=== PATIENT | male | born 1990 | race Caucasian/White ===

== ENCOUNTER 2017-02-05 07:14 | Emergency (ER) | payer BC ==
[2017-02-05] MEDS ORDERED: LIDOCAINE VISCOUS 2% 15 ML CUP MUCOUS MEM ONE ×2 (07:36→07:52)
[2017-02-05] MEDS ORDERED: KETOROLAC 60 MG/2 ML VIAL IM STA (07:48)
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
[2017-02-05] MEDS ORDERED: MORPHINE SULFATE 10 MG/ML SYRINGE IM STA (10:06)
[2017-02-05 10:48] VITALS: BP 136/79; PULSE 79; RESP 20; TEMP 97
== END 2017-02-05 10:52 | disposition home or self-care (01) ==
LOC: EC 07:14
DX: S90.01XA Contusion of right ankle, initial encounter (principal); S40.212A Abrasion of left shoulder, initial encounter; S40.211A Abrasion of right shoulder, initial encounter; S50.311A Abrasion of right elbow, initial encounter; S60.511A Abrasion of right hand, initial encounter; S70.211A Abrasion, right hip, initial encounter; S70.311A Abrasion, right thigh, initial encounter; S90.511A Abrasion, right ankle, initial encounter; Z88.0 Allergy status to penicillin; Z88.1 Allergy status to other antibiotic agents; V86.09XA Driver of other special all-terrain or other off-road motor vehicle injured in traffic accident, initial encounter; Y92.410 Unspecified street and highway as the place of occurrence of the external cause
CPT/HCPCS: 71010; 72170; 73610; 99284; 96372 ×2; J2270; J1885